=== PATIENT | male | born 2000 | race Caucasian/White ===

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

== ENCOUNTER → 2022-06-02 | Outpatient (CLI) | payer OTHER ==
--- NOTE | 2022-06-02 16:22 | XR ---
EXAMINATION TYPE: XR hand complete RT DATE OF EXAM: 06/02/2022 4:15 PM INDICATION: Patient age:Male; 21 years old; Reason for study: S60.940A UNSP SUPERFICIAL INJURY OF RIGHT INDEX FI; PHH. COMPARISON: None TECHNIQUE: Frontal, lateral and oblique views of the right hand were obtained. FINDINGS: Normal alignment of the visualized joints. No acute osseous pathology is identified. Mild soft tissue swelling of the second digit of the right hand. IMPRESSION: 1. No acute osseous pathology. 2. Mild soft tissue swelling of the right hand second digit.
== END | disposition home or self-care (01) ==
LOC: RADXRMAIN 16:00
PROVIDERS: ATTEND Internal Medicine
DX: M79.89 Other specified soft tissue disorders (principal)